=== PATIENT | male | born 1970 | race Caucasian/White ===

== ENCOUNTER 2016-10-04 14:00 | Emergency (ER) | payer SELFPAY ==
[~2016-10-04 14:00] MED LIST: PRILO PO
== END 2016-10-04 14:44 | disposition home or self-care (01) ==
LOC: ER 14:00
PROC: 0H90XZZ Drainage of Scalp Skin, External Approach (ICD-10-PCS; principal; 2016-10-04)
DX: L02.811 Cutaneous abscess of head [any part, except face] (principal); F17.200 Nicotine dependence, unspecified, uncomplicated; Z90.89 Acquired absence of other organs; Z88.5 Allergy status to narcotic agent; Z79.899 Other long term (current) drug therapy
CPT/HCPCS: 99283